=== PATIENT | female | born 1990 | race African-American/Black ===

== ENCOUNTER 2020-10-28 13:14 | Emergency (ER) | payer MEDICAID, OTHER ==
[~2020-10-28] VITALS: Ht 165.1 cm; Wt 59.0 kg
[~2020-10-28 13:14] MED LIST: CORTISPORIN EAR10 ML OTIC; NITROFURANTOIN100 M2 ORAL; PHENAZOPYRIDIN200 MG ORAL
[2020-10-28 13:33] VITALS: BP 120/70
[2020-10-28] MEDS ORDERED: IBUPROFEN600 M1 ORAL (13:40)
[2020-10-28] MEDS ORDERED: ROBAXIN-750750 MG PO (13:40)
[2020-10-28] MEDS ORDERED: LIDODERM700 M1 TOPIC (13:40)
--- NOTE | 2020-10-28 13:45 | Emergency Room Report ---
History of Present Illness General Chief Complaint: Upper Extremity Injury Source: Patient Present Illness HPI Disclaimer: Please note that this report is being documented using [employer] technology. This can lead to erroneous entry secondary to incorrect interpretation by the dictating instrument. HPI: 30-year-old female presents for evaluation of left shoulder and back pain. Hurting for the past 3 to 4 days. Denies specific injury. She works at the [employer] states that work has been particularly busy requiring her to lift heavy boxes over the past few weeks. Reports a gradual worsening tightness over the left shoulder extending over the back and up to the neck. Exacerbated by movement of the left arm. No relieving factors. She has not taken any medication prior to arrival. Denies numbness, tingling or weakness or swelling. Previously fractured the left humerus but did not require surgery. PMH: Denied PSH: Denied Allergies: Denied Social Hx: Denied Allergies: Coded Allergies: No Known Allergies (Unverified , 03/14/16) COVID-19 Screening Contact w/high risk pt: No Experienced COVID-19 symptoms?: No COVID-19 Testing performed SECURITY DISPATCHER: No Patient History Now: No - 10/14/20 Nursing Documentation-PMH Past Medical History: No Stated History Review of Systems All Other Systems: negative except mentioned in HPI Physical Exam Vital Signs Date Time Temp Pulse Resp B/P (MAP) Pulse Ox O2 Delivery O2 Flow Rate FiO2 10/28/20 13:33 98.1 78 18 120/70 (87) 98 Room Air General: Awake and alert, no acute distress HEENT: NC/AT. EOMI. Resp: Normal work of breathing Skin: Intact. No abrasions, laceration or rash over the exposed skin MSK: Normal tone and bulk. Moving all extremities. No obvious deformity. Tenderness palpation over the deltoid, supraspinatus, insertion point of the pectoralis and of the paraspinal muscles on the left side. No palpable deformity. Shoulder joint is atraumatic. Pain elicited approximate 120 degrees abduction. Sensation intact over the dermatomes of the left upper arm. Neuro: Awake and alert. Mentating appropriately Medical Decision Making Diagnostic Impression: Primary Impression: Shoulder strain Additional Impression: Back spasm ER Course Is a 30-year-old female presenting for evaluation of shoulder and back pain. Most consistent with overuse injury such as arthritis, strain, sprain, spasm. Will treat with NSAIDs, Robaxin, lidocaine patches. Patient is requesting a note for work for a few days. Do not see indication for imaging. Otherwise well-appearing stable for outpatient follow-up. Instructed to return with new or worsening symptoms. Last Vital Signs Date Time Temp Pulse Resp B/P (MAP) Pulse Ox O2 Delivery O2 Flow Rate FiO2 10/28/20 13:33 98.1 78 18 120/70 (87) 98 Room Air Disposition: HOME, SELF-CARE Condition: Stable Scripts Lidocaine Patch* (Lidoderm Patch*) 1 Each Adh..patch 1 PATCH TOPIC DAILY, #10 PATCH 0 Refills Patch(es) may remain in place for up to 12 hours in any 24-hour period. Prov: Salomon Gerber MD 10/28/20 Methocarbamol* (ROBAXIN-750*) 750 Mg Tablet 750 MG PO QID, #28 TAB 0 Refills Prov: Salomon Gerber MD 10/28/20 Ibuprofen* (MOTRIN*) 600 Mg Tablet 600 MG ORAL Q6H PRN for For Pain, #30 TAB 0 Refills Prov: Salomon Gerber MD 10/28/20 Referrals: [facility] Departure Forms: Return to Work Return to Work in (Days): 2 Patient Instructions: Heat Therapy Additional Instructions: Please follow-up with your primary care doctor in the next 1 to 3 days to discuss this emergency department visit and for reevaluation. If you have any new or worsening symptoms please return to the emergency department for reev aluation. Please note that this report is being documented using [employer] technology. This can lead to erroneous entry secondary to incorrect interpretation by the dictating instrument. Salomon Gerber MD Oct 28, 2020 13:45
[2020-10-28 15:32] VITALS: BP 120/70
== END 2020-10-28 13:50 | disposition home or self-care (01) ==
LOC: EMR 13:50
DX: S46.912A Strain of unspecified muscle, fascia and tendon at shoulder and upper arm level, left arm, initial encounter (principal); M62.830 Muscle spasm of back; X50.0XXA Overexertion from strenuous movement or load, initial encounter; Y93.89 Activity, other specified; Y92.242 Post office as the place of occurrence of the external cause
CPT/HCPCS: 99282